=== PATIENT | male | born 1980 | race Caucasian/White ===

== ENCOUNTER 2017-05-07 14:39 | Emergency (ER) | payer OTHER ==
[2017-05-07 15:25] VITALS: BP 116/91
--- NOTE | 2017-05-07 15:36 | EDM.PDOC ---
ED HPI GENERAL MEDICAL PROBLEM - General Chief Complaint: Laceration Stated Complaint: RIGHT PINKY FINGER LAC Time Seen by Provider: 05/07/17 15:02 Source of Information: Reports: Patient History Limitations: Reports: No Limitations - History of Present Illness INITIAL COMMENTS - FREE TEXT/NARRATIVE: Patient is a 36-year-old male who presents to the ED complaining of a laceration to the lateral aspect of the proximal phalanx fifth finger right hand. STates he was washing dishes and accidentally cut it on a piece of broken glass. Bleeding controlled with dressing. No sensory/motor deficits distally. Tetanus status is not up-to-date. Patient offers no additional complaints. Right 5-Little finger Pain Score (Numeric/FACES): 2 - Related Data Allergies Allergy/AdvReac Type Severity Reaction Status Date / Time No Known Allergies Allergy Verified 05/07/17 15:25 Home Meds: Home Meds Albuterol [Proair HFA] 2 puff INH Q4HR PRN #1 inhaler 04/02/14 [Rx] Amoxicillin. 04/02/14 [History] Lorazepam. 04/02/14 [History] Probiotic. 04/02/14 [History] Valtrex. 04/02/14 [History] Past Medical History Cardiovascular History: Reports: High Cholesterol Psychiatric History: Reports: Anxiety - Past Surgical History Other Cardiovascular Surgeries/Procedures: Temporal artery biopsy GI Surgical History: Reports: Hernia Repair/Other Social & Family History - Family History Family Medical History: Noncontributory - Tobacco Use Smoking Status *Q: Current Every Day Smoker Years of Tobacco use: 10 Packs/Tins Daily: 1 - Alcohol Use Days Per Week of Alcohol Use: 0 - Recreational Drug Use Recreational Drug Use: No ED ROS GENERAL - Review of Systems Review Of Systems: See Below Neurological: Denies: Numbness, Tingling ED EXAM, SKIN/RASH Exam: See Below Exam Limited By: No Limitations General Appearance: Alert, WD/WN, No Apparent Distress Ears: Hearing Grossly Normal Nose: Normal Inspection Throat/Mouth: Normal Voice, No Airway Compromise Neck: Normal Inspection, Supple Respiratory/Chest: No Respiratory Distress, No Accessory Muscle Use Cardiovascular: Normal Peripheral Pulses, Regular Rate, Rhythm Peripheral Pulses: 2+: Radial (R) Extremities: Other (Approximate 3 cm laceration to the lateral aspect of the proximal phalanx on the right fifth finger. Minimal bleeding from site. This is a flap injury. Does not appear to be involving the joint or flexor/extensor tendons. No sensory motor deficits distally.) ED SKIN PROCEDURES - Laceration/Wound Repair Right Lateral Finger Lac/Wound length In cm: 3 Appearance: Subcutaneous, Clean Distal NVT: Neuro & Vascular Intact, No Tendon Injury Anesthetic Type: Local Local Anesthesia - Lidocaine (Xylocaine): 1% Plain Local Anesthetic Volume: 4cc Skin Prep: Chlorhexidine (Hibiciens), Saline, Sterile Drape Exploration/Debridement/Repair: Wound Explored, In a Bloodless Field, Explored to Base, No Foreign Material Found (No joint involvement) Closed with: Sutures Suture Size: 4-0 # of Sutures: 6 Suture Type: Prolene, Interrupted, Mattress Sterile Dressing Applied: Nurse Tetanus Status Addressed: Yes Complications: No Course - Vital Signs Last Recorded V/S: Last Vital Signs Temp Pulse 78 05/07/17 15:23 Resp 16 05/07/17 15:23 BP 116/91 H 05/07/17 15:23 Pulse Ox 100 05/07/17 15:23 - Orders/Labs/Meds Orders: Active Orders 24 hr Category Date Time Status Vaccines to be Administered [RC] PER UNIT ROUTINE Care 05/07/17 15:45 Active Meds: Medications Discontinued Medications Generic Name Dose Route Start Last Admin Trade Name Lew PRN Reason Stop Dose Admin Diphtheria/Tetanus/Acell Pertussis 0.5 ml 05/07/17 15:45 05/07/17 16:15 Adacel IM 05/07/17 15:46 Not Given .ONCE ONE - Re-Assessments/Exams Free Text/Narrative Re-Assessment/Exam: Adacel ordered. Per patient he double checked [place] chart and tetanus status is up-to-date. Last tetanus was 5 years ago. Laceration closed with no complications. Will discharge home with instructions. Departure - Departure Time of Disposition: 16:38 Disposition: Home, Self-Care 01 Condition: Good Clinical Impression: Laceration of finger Qualifiers: Encounter type: initial encounter Finger: ring finger Damage to nail status: without damage Foreign body presence: without foreign body Laterality: right Qualified Code(s): S61.214A - Laceration without foreign body of right ring finger without damage to nail, initial encounter - Discharge Information Instructions: Laceration Care, Adult, [id number], Stitches, [place], or Adhesive Wound Closure, [id number] Referrals: Ebony Ramírez MD [Primary Care Provider] - Forms: ED Department Discharge Additional Instructions: Cleanse site twice daily with soap and water, pat dry, reapply triple antibiotic ointment, and dressing. See a provider at [facility] for sutures to be removed in 7-10 days. Return to the ED for any new or worsening symptoms. Take Tylenol and ibuprofen in alternating fashion. Keep area clean and dry. Do not soak the wound. - My Orders Last 24 Hours: My Active Orders 05/07/17 15:45 Vaccines to be Administered [RC] PER UNIT ROUTINE - Assessment/Plan Last 24 Hours: My Active Orders 05/07/17 15:45 Vaccines to be Administered [RC] PER UNIT ROUTINE
[2017-05-07] MEDS ORDERED: Diphtheria,Pertussis(Acell),Tetanus Vaccine 0.5 ML SDV IM ONE (15:45)
== END 2017-05-07 16:50 | disposition home or self-care (01) ==
LOC: JD.ED 14:39
DX: S61.216A Laceration without foreign body of right little finger without damage to nail, initial encounter (principal); E78.00 Pure hypercholesterolemia, unspecified; F17.210 Nicotine dependence, cigarettes, uncomplicated; W25.XXXA Contact with sharp glass, initial encounter
CPT/HCPCS: 12002; 99283-25

== ENCOUNTER 2017-08-01 00:40 | Emergency (ER) | payer OTHER ==
[2017-08-01 00:51] VITALS: BP 129/88
[2017-08-01] MEDS ORDERED: Lidocaine 1% 10 ML MDV INJECT ONE (00:54)
--- NOTE | 2017-08-01 01:33 | EDM.PDOC ---
ED HPI GENERAL MEDICAL PROBLEM - General Chief Complaint: Laceration Stated Complaint: LACERATION TO HAND Time Seen by Provider: 08/01/17 00:52 Source of Information: Reports: Patient History Limitations: Reports: No Limitations - History of Present Illness INITIAL COMMENTS - FREE TEXT/NARRATIVE: The patient was washing dishes this evening and a glass broke and cut his right 5th finger. He is right handed and his tetanus was up to date. He can move his finger. Onset: Sudden Duration: Minutes: Location: Reports: Upper Extremity, Right (5th finger) Quality: Reports: Sharp Severity: Mild Improves with: Reports: None Worsens with: Reports: None Context: Reports: Activity (washing dishes) Associated Symptoms: Reports: No Other Symptoms Right Hand Pain Score (Numeric/FACES): 2 - Related Data Allergies Allergy/AdvReac Type Severity Reaction Status Date / Time No Known Allergies Allergy Verified 08/01/17 00:48 Home Meds: Home Meds Valtrex. 04/02/14 [History] Rosuvastatin [Crestor] 10 mg pe PO DAILY 08/01/17 [History] Past Medical History Cardiovascular History: Reports: High Cholesterol Psychiatric History: Reports: Anxiety - Past Surgical History Other Cardiovascular Surgeries/Procedures: Temporal artery biopsy GI Surgical History: Reports: Hernia Repair/Other Social & Family History - Family History Family Medical History: Noncontributory - Tobacco Use Smoking Status *Q: Current Every Day Smoker Years of Tobacco use: 10 Packs/Tins Daily: 1 - Alcohol Use Days Per Week of Alcohol Use: 0 - Recreational Drug Use Recreational Drug Use: No ED ROS GENERAL - Review of Systems Review Of Systems: See Below Constitutional: Reports: No Symptoms HEENT: Reports: No Symptoms Respiratory: Reports: No Symptoms Cardiovascular: Reports: No Symptoms Endocrine: Reports: No Symptoms GI/Abdominal: Reports: No Symptoms : Reports: No Symptoms Musculoskeletal: Reports: Other (2cm laceration to the right 5th finger) ED EXAM, SKIN/RASH Exam: See Below Exam Limited By: No Limitations General Appearance: Alert, No Apparent Distress Ears: Normal External Exam Nose: Normal Inspection Head: Atraumatic, Normocephalic Neck: Normal Inspection Respiratory/Chest: No Respiratory Distress Extremities: Other (2cm laceration to the dorsal aspect of the right 5th finger. He has no tendon laceration. He has good sensation distally. There is venous bleeding.) ED SKIN PROCEDURES - Laceration/Wound Repair Right Finger Lac/Wound length In cm: 2 Appearance: Subcutaneous, Linear Distal NVT: Neuro & Vascular Intact, No Tendon Injury Anesthetic Type: Local Local Anesthesia - Lidocaine (Xylocaine): 1% Plain Skin Prep: Saline Exploration/Debridement/Repair: Wound Explored, In a Bloodless Field, Explored to Base Closed with: Sutures Suture Size: 4-0 # of Sutures: 6 Suture Type: Nylon, Interrupted, Simple Tetanus Status Addressed: Yes Complications: No Course - Vital Signs Last Recorded V/S: Last Vital Signs Temp 97.4 F 08/01/17 00:48 Pulse 100 08/01/17 00:48 Resp 18 08/01/17 00:48 BP 129/88 08/01/17 00:48 Pulse Ox 99 08/01/17 00:48 - Orders/Labs/Meds Meds: Medications Discontinued Medications Generic Name Dose Route Start Last Admin Trade Name Lew PRN Reason Stop Dose Admin Lidocaine HCl 10 ml 08/01/17 00:54 08/01/17 01:22 Xylocaine 1% INJECT 08/01/17 00:55 10 ml ONETIME ONE Administration Departure - Departure Time of Disposition: 01:35 Disposition: Home, Self-Care 01 Condition: Good Clinical Impression: Laceration of right little finger Qualifiers: Encounter type: initial encounter Damage to nail status: without damage Foreign body presence: without foreign body Qualified Code(s): S61.216A - Laceration without foreign body of right little finger without damage to nail, initial encounter - Discharge Information Referrals: Ebony Ramírez MD [Primary Care Provider] - Additional Instructions: Soak your finger in warm soapy water 2 times per day and apply antibiotic ointment. Have the sutures removed in 1 week. Look for any signs of infection such as redness, swelling, pain, or drainage. If you see any of these signs please follow up. You may need oral antibiotics.
== END 2017-08-01 01:50 | disposition home or self-care (01) ==
LOC: JD.ED 00:40
DX: S61.216A Laceration without foreign body of right little finger without damage to nail, initial encounter (principal); F17.210 Nicotine dependence, cigarettes, uncomplicated; E78.00 Pure hypercholesterolemia, unspecified; Z79.899 Other long term (current) drug therapy; W25.XXXA Contact with sharp glass, initial encounter
CPT/HCPCS: 12001; 99282; 99283-25

== ENCOUNTER 2017-11-25 03:03 | Emergency (ER) | payer OTHER ==
[2017-11-25 03:10] VITALS: BP 130/88
[2017-11-25] MEDS ORDERED: methylPREDNISolone Sodium Succinate 125 MG/2 ML SDV IVPUSH ONE (03:24)
[2017-11-25] MEDS ORDERED: Famotidine 20 MG/2 ML SDV IVPUSH ONE (03:24)
[2017-11-25] MEDS ORDERED: diphenhydrAMINE 50 MG/ML SDV IVPUSH ONE (03:24)
[2017-11-25] MEDS ORDERED: Sodium Chloride 0.9% 1,000 ML IV SCH (03:30)
--- NOTE | 2017-11-25 03:30 | EDM.PDOC ---
ED HPI GENERAL MEDICAL PROBLEM - General Chief Complaint: Allergic Reaction Stated Complaint: ALLERGIC REACTION Time Seen by Provider: 11/25/17 03:25 Source of Information: Reports: Patient History Limitations: Reports: No Limitations - History of Present Illness INITIAL COMMENTS - FREE TEXT/NARRATIVE: 36-year-old male presents the ED after wakening from sleep with a sore throat and a feeling of throat closure pain in his neck and under his chin and erythema of his face anterior neck and posterior neck he describes it as a burning discomfort and painful to swallow. Respiratory distress with wheezing cough etc. He had shrimp with soap for supper last evening but has never had problems with shellfish in the past. It to neutral grain bars with that he's ad many times in the past last evening. Never had any allergic reaction. He is describing bumps that are tender across the posterior aspect of his scalp. He states he was perfectly fine when he went to bed at 2230 hrs. last night. Woke up with symptoms within the last hour Onset: Today Onset Date: 11/25/17 Onset Time: 03:00 Duration: Minutes: Location: Reports: Head (Throat supple scalp and back of his neck.), Face, Neck Quality: Reports: Ache, Burning, Other Severity: Moderate (Itching.) Improves with: Reports: None Worsens with: Reports: None Context: Reports: Other (Awoken from sleep with symptoms.). Denies: Activity, Exercise, Lifting, Sick Contact, Trauma Associated Symptoms: Reports: Rash (Face neck and anterior chest are quite erythematous.). 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 04/02/14 [History] Rosuvastatin [Crestor] 10 mg pe PO DAILY 08/01/17 [History] Sertraline [Zoloft] 25 mg PO DAILY 11/25/17 [History] Zolpidem [Ambien] 5 mg PO DAILY PRN 11/25/17 [History] predniSONE [Deltasone] 20 mg PO BID #6 tablet 11/25/17 [Rx] Past Medical History Cardiovascular History: Reports: High Cholesterol Psychiatric History: Reports: Anxiety - Past Surgical History Other Cardiovascular Surgeries/Procedures: Temporal artery biopsy GI Surgical History: Reports: Hernia Repair/Other Social & Family History - Family History Family Medical History: Noncontributory - Tobacco Use Smoking Status *Q: Current Every Day Smoker Years of Tobacco use: 10 Packs/Tins Daily: 1 - Caffeine Use Caffeine Use: Reports: Coffee - Alcohol Use Days Per Week of Alcohol Use: 0 - Recreational Drug Use Recreational Drug Use: No - Living Situation & Occupation Living situation: Reports: Single Occupation: Employed ED ROS ALLERGIC REACTION - Review of Systems Review Of Systems: See Below Constitutional: Reports: No Symptoms HEENT: Reports: No Symptoms Respiratory: Reports: No Symptoms Cardiovascular: Reports: No Symptoms Endocrine: Reports: No Symptoms GI/Abdominal: Reports: No Symptoms : Reports: No Symptoms Musculoskeletal: Reports: No Symptoms Skin: Reports: No Symptoms Neurological: Reports: No Symptoms Psychiatric: Reports: No Symptoms Hematologic/Lymphatic: Reports: No Symptoms Immunologic: Reports: No Symptoms ED EXAM GENERAL NO PERIP PULSE - Physical Exam Exam: See Below Exam Limited By: No Limitations (Speech) General Appearance: Alert, WD/WN, Anxious, Mild Distress, Other (Page is normal in voice) Eye Exam: Bilateral Eye: Normal Inspection Ears: Other (Ears are bright red in color and he states are burning and itchy.) Nose: Other (No excessive nasal drainage) Throat/Mouth: Other (He has pain on full extension of his tongue. The floor of the mouth is boggy particular in the left side with no palpable deformities on gloved finger exam. The bogginess traverses the floor the mouth and to the undersurface of his chin. I.e. the skin is thickened and edematous. The posterior oropharynx is normal tonsils are small uvula for the most part appears normal.) Head: Atraumatic Neck: Normal Inspection, Supple, Lymphadenopathy (L) (Mild tenderness of the left submandibular gland.), Other (Slight tenderness to the undersurface of his chin and the tissue seems somewhat boggy and edematous.) Respiratory/Chest: No Respiratory Distress, Lungs Clear, Normal Breath Sounds, No Accessory Muscle Use. No: Rhonchi, Wheezing Cardiovascular: Normal Peripheral Pulses, Regular Rate, Rhythm, No Edema, No Gallop, No Murmur GI/Abdominal: Normal Bowel Sounds, Soft, Non-Tender, No Organomegaly Back Exam: Normal Inspection, Full Range of Motion Extremities: Normal Inspection, Normal Range of Motion, Non-Tender, No Pedal Edema, Normal Capillary Refill Skin Exam: Erythema (His face is erythematous his ears are erythematous his back of his neck is very erythematous and thickened skin is if it's edematous similar to the floor of his mouth and undersurface of his chin. The anterior aspect of his neck and anterior upper chest in the V formation that exhibit exposed the son is very erythematous ..No hives are evident.) Course - Vital Signs Last Recorded V/S: Last Vital Signs Temp 36.3 C 11/25/17 03:07 Pulse 86 11/25/17 03:07 Resp 18 11/25/17 03:07 BP 130/88 11/25/17 03:07 Pulse Ox 99 11/25/17 03:07 - Orders/Labs/Meds Orders: Active Orders 24 hr Category Date Time Status Sodium Chloride 0.9% [Normal Saline] 1,000 ml Med 11/25/17 03:30 Active IV ASDIRECTED Medication Orders Sodium Chloride (Normal Saline) 1,000 mls @ 250 mls/hr IV ASDIRECTED LONA Last Admin: 11/25/17 03:40 Dose: 250 mls/hr Meds: Medications Generic Name Dose Route Start Last Admin Trade Name Freq PRN Reason Stop Dose Admin Sodium Chloride 1,000 mls @ 250 mls/hr 11/25/17 03:30 11/25/17 03:40 Normal Saline IV 250 mls/hr ASDIRECTED LONA Administration Discontinued Medications Generic Name Dose Route Start Last Admin Trade Name Freq PRN Reason Stop Dose Admin Diphenhydramine HCl 25 mg 11/25/17 03:24 11/25/17 03:32 Benadryl IVPUSH 11/25/17 03:25 25 mg ONETIME ONE Administration Famotidine 20 mg 11/25/17 03:24 11/25/17 03:34 Pepcid IVPUSH 11/25/17 03:25 20 mg ONETIME ONE Administration Methylprednisolone Sodium Succinate 125 mg 11/25/17 03:24 11/25/17 03:35 Solu-Medrol IVPUSH 11/25/17 03:25 125 mg ONETIME ONE Administration - Radiology Interpretation Free Text/Narrative:: 36-year-old male presents to the ED with painful swallowing and a feeling of throat closure that he awoke with within the last 45 minutes. We looked in the mirror he identified that his face ears, anterior neck are very erythematous. He had shrimp for supper but he's never had a reaction to seafood in the past. He claims the area is mildly to moderately pruritic. Examination shows that he has bogginess of the floor of his mouth undersurface his tongue but no true oropharyngeal swelling that I can identify. His voice is intact and his lungs are clear. Skin of his posterior neck is very erythematous like a bad sunburn and seems to be tender on palpation of the occipital lymph nodes. The scalp is clear. There is no signs of cellulitis in this area. Very atypical presentation for an allergy reaction. However this appears to be the most likely etiology. Will treat with Benadryl 50 mg IV Solu-Medrol 125 mg IV and Pepcid 20 mg IV. Of note he is afebrile with normal vital signs - Re-Assessments/Exams Free Text/Narrative Re-Assessment/Exam: 11/25/17 04:15: His erythema is starting to fade. He states the itch is still slowly starting to improve as well. Medication is been in for about 25 minutes. Will review and 25 minutes time. Departure - Departure Time of Disposition: 04:39 Disposition: Home, Self-Care 01 Condition: Fair Clinical Impression: Allergic reaction Qualifiers: Encounter type: initial encounter Qualified Code(s): T78.40XA - Allergy, unspecified, initial encounter - Discharge Information Prescriptions: predniSONE [Deltasone] 20 mg PO BID #6 tablet Referrals: Ebony Ramírez MD [Primary Care Provider] - Forms: ED Department Discharge Additional Instructions: Evaluation the emergency room this morning in regards to awakening from sleep with a sore throat and bogginess underneath the floor of her mouth/ undersurface of your chin. Diffuse redness of your face neck upper chest and upper back and neck particularly. Associated burning and itching sensation. I believe this is an atypical allergic response likely to seafood i.e. shrimp eaten at suppertime last night. Usually reaction occurs a lot sooner i.e. usually 1-4 hours from the time of ingestion. At any rate he were treated for allergic response with Benadryl 50 mg IV Solu-Medrol 125 mg IV and Pepcid 20 mg IV. Over the ensuing hour or redness was starting to fade but she still had the body sensation and pain in the floor of your mouth with swallowing. And thickening of the skin of the back of your neck in particular. Therefore this may be some time before this resolves completely. The steroid there was given intravenously will start to work in another 3 hours or so. Expect gradual improvement as the day goes on. However if you notice increased itching or swelling or redness occurring again may repeat Benadryl 50 mg by mouth every 6 hours. I'm going to suggest you take prednisone 20 mg twice daily for the next 3 days with the [facility] This is to ensure that the allergic response comes under immediate control if you are not markedly improved in 36 hours time he should be reviewed. - My Orders Last 24 Hours: My Active Orders 11/25/17 03:30 Sodium Chloride 0.9% [Normal Saline] 1,000 ml IV ASDIRECTED - Assessment/Plan Last 24 Hours: My Active Orders 11/25/17 03:30 Sodium Chloride 0.9% [Normal Saline] 1,000 ml IV ASDIRECTED
== END 2017-11-25 04:52 | disposition home or self-care (01) ==
LOC: JD.ED 03:03
DX: L53.9 Erythematous condition, unspecified (principal); T78.40XA Allergy, unspecified, initial encounter; E78.00 Pure hypercholesterolemia, unspecified; F17.210 Nicotine dependence, cigarettes, uncomplicated; J02.9 Acute pharyngitis, unspecified; Z79.899 Other long term (current) drug therapy
CPT/HCPCS: 96361; 96374; 96375; 99283; J1200; J2930; J7040; 99284